=== PATIENT | male | born 1955 | race Caucasian/White ===

== ENCOUNTER 2017-08-27 12:50 | Observation (INO) | payer OTHER ==
[~2017-08-27] VITALS: Ht 175.3 cm; Wt 84.0 kg
[2017-08-27 13:31] VITALS: BP 124/66; PULSE 86; RESP 18; TEMP 97.5; O2SAT 99
[2017-08-27 13:57] VITALS: BP 104/64; PULSE 60; RESP 19; O2SAT 97
--- NOTE | 2017-08-27 13:59 | PD ---
HPI Chief Complaint: Chest Pain Time Seen by Provider: 13:44 Travel History International Travel<30 days: No Contact w/Intl Traveler<30days: No Traveled to known affect area: No History of Present Illness HPI 62-year-old male went to an urgent here and was sent here with note of chest pain and numbness to his left arm. He was given aspirin and 1 nitroglycerin prior to arrival. He denies any other concurrent complaints. He states multiple years ago he had a normal heart catheterization after an abnormal stress test. He states he has not had a stress test or any other testing for multiple years. Quality is pressure. Severity is currently resolved. He denies other modifying factors other than improvement with the nitroglycerin. The pain has been going on today. [facility] Past Medical History Medical History: Denies Significant Hx Past Surgical History Surgical History: No Previous Surgery Family History Family Myocardial Infarction: No Social History Tobacco Use: No Review of Systems Except as stated in HPI: all other systems reviewed are Neg Physical Exam Narrative GENERAL: 62-year-old male in no apparent distress SKIN: Focused skin assessment warm/dry. HEAD: Atraumatic. Normocephalic. EYES: No scleral icterus. No injection or drainage. ENT: No nasal bleeding or discharge. Mucous membranes pink and moist. NECK: Trachea midline. No JVD. CARDIOVASCULAR: Regular rate and rhythm. RESPIRATORY: No accessory muscle use. Clear to auscultation. Breath sounds equal bilaterally. GASTROINTESTINAL: Abdomen soft, non-tender, nondistended. MUSCULOSKELETAL: No obvious deformities. No clubbing. No cyanosis. NEUROLOGICAL: Awake and alert. No obvious cranial nerve deficits. Motor grossly within normal limits. Normal speech. Data Data Last Documented VS Vital Signs Date Time Temp Pulse Resp B/P (MAP) Pulse Ox O2 Delivery O2 Flow Rate FiO2 08/27/17 13:57 60 19 104/64 (77) 97 Room Air 08/27/17 13:31 97.5 Orders Orders Electrocardiogram (08/27/17 13:45) Ckmb (Isoenzyme) Profile (08/27/17 13:45) Complete Blood Count With Diff (08/27/17 13:45) Comprehensive Metabolic Panel (08/27/17 13:45) Magnesium (Mg) (08/27/17 13:45) Prothrombin Time / Inr (Pt) (08/27/17 13:45) Act Partial Throm Time (Ptt) (08/27/17 13:45) Troponin I (08/27/17 13:45) Chest, Single Ap (08/27/17 13:45) Ecg Monitoring (08/27/17 13:45) Bilateral Bp Monitoring (08/27/17 13:45) Iv Access Insert/Monitor (08/27/17 13:45) Oximetry (08/27/17 13:45) Admit Order (Ed Use Only) (08/27/17 15:29) Labs Laboratory Tests Test 08/27/17 13:55 White Blood Count 5.6 TH/MM3 Red Blood Count 5.00 MIL/MM3 Hemoglobin 15.8 GM/DL Hematocrit 44.8 % Mean Corpuscular Volume 89.7 FL Mean Corpuscular Hemoglobin 31.6 PG Mean Corpuscular Hemoglobin Concent 35.2 % Red Cell Distribution Width 13.3 % Platelet Count 174 TH/MM3 Mean Platelet Volume 8.7 FL Neutrophils (%) (Auto) 64.2 % Lymphocytes (%) (Auto) 27.5 % Monocytes (%) (Auto) 5.6 % Eosinophils (%) (Auto) 1.2 % Basophils (%) (Auto) 1.5 % Neutrophils # (Auto) 3.6 TH/MM3 Lymphocytes # (Auto) 1.5 TH/MM3 Monocytes # (Auto) 0.3 TH/MM3 Eosinophils # (Auto) 0.1 TH/MM3 Basophils # (Auto) 0.1 TH/MM3 CBC Comment DIFF FINAL Differential Comment Prothrombin Time 11.5 SEC Prothromb Time International Ratio 1.1 RATIO Activated Partial Thromboplast Time 28.3 SEC Blood Urea Nitrogen 9 MG/DL Creatinine 0.98 MG/DL Random Glucose 92 MG/DL Total Protein 6.9 GM/DL Albumin 3.9 GM/DL Calcium Level 8.6 MG/DL Magnesium Level 2.0 MG/DL Alkaline Phosphatase 76 U/L Aspartate Amino Transf (AST/SGOT) 21 U/L Alanine Aminotransferase (ALT/SGPT) 25 U/L Total Bilirubin 0.4 MG/DL Sodium Level 141 MEQ/L Potassium Level 3.8 MEQ/L Chloride Level 100 MEQ/L Carbon Dioxide Level 30.6 MEQ/L Anion Gap 10 MEQ/L Estimat Glomerular Filtration Rate 78 ML/MIN Total Creatine Kinase 82 U/L Troponin I LESS THAN 0.02 NG/ML MDM Medical Decision Making Medical Screen Exam Complete: Yes Emergency Medical Condition: Yes Medical Record Reviewed: Yes (Past history confirmed) Interpretation(s) CBC & BMP Diagram 08/27/17 13:55 Total Protein 6.9, Albumin 3.9, Calcium Level 8.6, Magnesium Level 2.0, Alkaline Phosphatase 76, Aspartate Amino Transf (AST/SGOT) 21, Alanine Aminotransferase (ALT/SGPT) 25, Total Bilirubin 0.4 Last 24 hours Impressions Chest X-Ray 08/27/17 1345 Signed Impressions: CONCLUSION: No acute intracranial abnormality. Differential Diagnosis MS, gastritis, musculoskeletal Narrative Course We will check blood work, x-ray and reevaluate. Already received aspirin and currently pain-free ed workup no acute, will place in [facility] observation, patient agrees to plan, no new concerns Diagnosis Primary Impression: Chest pain Qualified Codes: R07.9 - Chest pain, unspecified Admitting Information Admitting Physician Requests: Observation Margo Rivas MD August 27, 2017 13:59
--- NOTE | 2017-08-27 14:16 | RADRPT ---
EXAM DATE: 08/27/2017 2:10 PM EDT AGE/SEX: 62 years / Male INDICATIONS: Tightness in chest, tingling in left arm and shoulder. CLINICAL DATA: This is the patient's initial encounter. Patient reports that signs and symptoms have been present for 1 day and indicates a pain score of 0/10. MEDICAL/SURGICAL HISTORY: None. None. COMPARISON: No prior [place] exams available for comparison. FINDINGS: A single AP view of the chest demonstrates the lungs to be symmetrically aerated without evidence of mass, infiltrate or effusion. The cardiomediastinal contours are unremarkable. Osseous structures a re intact. CONCLUSION: No acute intracranial abnormality. Electronically signed by: Vishnu Vang MD 08/27/2017 2:15 PM EDT
[2017-08-27 14:29] LABS: AUTOMATED NEUTROPHIL # 3.6 TH/MM3 (1.8-7.7); BASOPHIL # 0.1 TH/MM3 (0-0.2); BASOPHIL % 1.5 % (0.0-2.0); EOSINOPHIL # 0.1 TH/MM3 (0-0.4); EOSINOPHIL % 1.2 % (0.0-4.0); HEMATOCRIT 44.8 % (39.0-51.0); HEMOGLOBIN 15.8 GM/DL (13.0-17.0); LYMPH % 27.5 % (9.0-44.0); LYMPHOCYTE # 1.5 TH/MM3 (1.0-4.8); MEAN CELL VOLUME 89.7 FL (80.0-100.0); MEAN CORPUSCULAR HEMOGLOBIN 31.6 PG (27.0-34.0); MEAN CORPUSCULAR HGB CONC 35.2 % (32.0-36.0); MEAN PLATELET VOLUME 8.7 FL (7.0-11.0); MONO % 5.6 % (0.0-8.0); MONOCYTE # 0.3 TH/MM3 (0-0.9); NEUT % 64.2 % (16.0-70.0); PLATELET COUNT 174 TH/MM3 (150-450); RED CELL DISTRIBUTION WIDTH 13.3 % (11.6-17.2); WHITE BLOOD COUNT 5.6 TH/MM3 (4.0-11.0)
[2017-08-27 14:39] LABS: INTERNATIONAL NORMALIZED RATIO 1.1 RATIO; PROTHROMBIN TIME - PATIENT 11.5 SEC (9.8-11.6)
[2017-08-27 15:08] LABS: ALBUMIN 3.9 GM/DL (3.4-5.0); ALT (GPT) 25 U/L (12-78); AST (GOT) 21 U/L (15-37); BICARBONATE 30.6 MEQ/L (21.0-32.0); BLOOD UREA NITROGEN 9 MG/DL (7-18); CALCIUM 8.6 MG/DL (8.5-10.1); CHLORIDE 100 MEQ/L (98-107); CREATININE 0.98 MG/DL (0.60-1.30); GLOMERULAR FILTRATION RATE 78 ML/MIN (>89); GLUCOSE,RANDOM 92 MG/DL (74-106); SODIUM (NA) 141 MEQ/L (136-145)
[2017-08-27 15:13] LABS: ALKALINE PHOSPHATASE 76 U/L (45-117); TOTAL BILIRUBIN ADULT 0.4 MG/DL (0.2-1.0); TOTAL PROTEIN 6.9 GM/DL (6.4-8.2); TROPONIN I LESS THAN 0.02 NG/ML (0.02-0.05)
[2017-08-27 16:35] VITALS: BP 105/63; PULSE 53; RESP 17; O2SAT 97
[2017-08-27 17:14] LABS: TROPONIN I LESS THAN 0.02 NG/ML (0.02-0.05)
--- NOTE | 2017-08-27 17:25 | HHI.HP ---
[facility] Primary Care Physician Kurt Jackson DO Chief Complaint Chest pain History of Present Illness This is a 62-year-old male that is legally blind that presents to ED after being evaluated at an urgent care center with complaint of tingling in left arm intermittently for the last 5 days. He was given sublingual nitroglycerin and told to come to ED. 5 days ago he also had a left-sided chest discomfort that lasted about an hour. Describes as a tightness. The discomfort never recurred. The tingling in the left arm seems last a couple hours at a time. Nothing in particular seems to bring on the discomfort. Denies shortness of breath, nausea, or diaphoresis. States he has had a cardiac evaluation in the past. States he had an abnormal stress test 10 years ago that led to a heart catheterization which she states is normal. Review of Systems General: Patient denies fevers, chills, and recent travel. HEENT: Patient denies headache, sore throat, difficulty swallowing. Cardiovascular: Has the chest discomfort as mentioned above. Denies sensation of heart beating rapidly or irregularly. No syncope. Denies diaphoresis. Respiratory: Denies shortness of breath or inspirational chest discomfort. Denies coughing wheezing or hemoptysis. GI: Patient denies nausea, vomiting, diarrhea, abdominal pain, bloody stools. Musculoskeletal: Patient denies joint pain or edema. Denies calf pain or edema. Neurovascular: Complained of tingling down his left arm. Patient denies numbness, weakness in extremities. Denies headache. Endocrine: Denies polyuria and polydipsia. Hematologic: Denies easy bruising. Skin: Denies rash or itching. Past Family Social History Allergies: Coded Allergies: No Known Allergies (Unverified , 08/27/17) Past Medical History Patient states he is legally blind. Denies hypertension, hyperlipidemia, diabetes, and known CAD. Family History States his mother had an WA in her late 70s. Social History Lifetime non-smoker. Denies alcohol or illicit drug use. Physical Exam Vital Signs Vital Signs Date Time Temp Pulse Resp B/P (MAP) Pulse Ox O2 Delivery O2 Flow Rate FiO2 08/27/17 17:12 (77) 08/27/17 16:35 53 17 105/63 (77) 97 Room Air 08/27/17 13:57 60 19 104/64 (77) 97 Room Air 08/27/17 13:31 97.5 86 18 124/66 (85) 99 Physical Exam GENERAL: This is a well-nourished, well-developed patient, in no apparent distress. Patient speaks in clear complete sentences. Patient is pleasant. HEENT: Head is atraumatic and normocephalic. Neck is supple without lymphadenopathy and trachea is midline. No JVD or carotid bruits. CARDIOVASCULAR: Regular rate and rhythm without murmurs, gallops, or rubs. RESPIRATORY: Clear to auscultation. Breath sounds equal bilaterally. No wheezes , rales, or rhonchi. Chest wall is nontender. No use of accessory muscles. GASTROINTESTINAL: Abdomen is nontender, nondistended. Abdomen soft. No obvious pulsatile mass or bruit. No CVA tenderness. Strong femoral pulses bilaterally. Normal bowel sounds in all quadrants. MUSCULOSKELETAL: Patient is moving upper and lower extremities freely. No calf tenderness or edema, no Homans sign. Strong pulses in upper and lower extremities. NEUROLOGICAL: Patient is alert and oriented. Cranial nerves 2-12 are grossly intact. No focal deficits and speech is clear. SKIN: No rash and turgor is normal. Laboratory Laboratory Tests Test 08/27/17 13:55 08/27/17 16:34 White Blood Count 5.6 Red Blood Count 5.00 Hemoglobin 15.8 Hematocrit 44.8 Mean Corpuscular Volume 89.7 Mean Corpuscular Hemoglobin 31.6 Mean Corpuscular Hemoglobin Concent 35.2 Red Cell Distribution Width 13.3 Platelet Count 174 Mean Platelet Volume 8.7 Neutrophils (%) (Auto) 64.2 Lymphocytes (%) (Auto) 27.5 Monocytes (%) (Auto) 5.6 Eosinophils (%) (Auto) 1.2 Basophils (%) (Auto) 1.5 Neutrophils # (Auto) 3.6 Lymphocytes # (Auto) 1.5 Monocytes # (Auto) 0.3 Eosinophils # (Auto) 0.1 Basophils # (Auto) 0.1 CBC Comment DIFF FINAL Differential Comment Prothrombin Time 11.5 Prothromb Time International Ratio 1.1 Activated Partial Thromboplast Time 28.3 Blood Urea Nitrogen 9 Creatinine 0.98 Random Glucose 92 Total Protein 6.9 Albumin 3.9 Calcium Level 8.6 Magnesium Level 2.0 Alkaline Phosphatase 76 Aspartate Amino Transf (AST/SGOT) 21 Alanine Aminotransferase (ALT/SGPT) 25 Total Bilirubin 0.4 Sodium Level 141 Potassium Level 3.8 Chloride Level 100 Carbon Dioxide Level 30.6 Anion Gap 10 Estimat Glomerular Filtration Rate 78 Total Creatine Kinase 82 Troponin I LESS THAN 0.02 Result Diagram: 08/27/17 1355 08/27/17 1355 Imaging Last 48 hours Impressions Chest X-Ray 08/27/17 1345 Signed Impressions: CONCLUSION: No acute intracranial abnormality. Course Initial EKG is sinus bradycardia without significant ST segment depressions or elevations. Caprini VTE Risk Assessment Caprini VTE Risk Assessment: Mod/High Risk (score >= 2) Caprini Risk Assessment Model Point Value = 1 Point Value = 2 Point Value = 3 Point Value = 5 Age 41-60 Minor surgery BMI > 25 kg/m2 Swollen legs Varicose veins or History of unexplained or recurrent spontaneous Oral contraceptives or hormone replacement Sepsis (< 1 month) Serious lung disease, including pneumonia (< 1 month) Abnormal pulmonary function Acute myocardial infarction Congestive heart failure (< 1 month) History of inflammatory bowel disease Medical patient at bed rest Age 61-74 Arthroscopic surgery Major open surgery (> 45 min) Laparoscopic surgery (> 45 min) Malignancy Confined to bed (> 72 hours) Immobilizing plaster cast Central venous access Age >= 75 History of VTE Family history of VTE Factor V Leiden Prothrombin [id number] Lupus anticoagulant Anticardiolipin antibodies Elevated serum homocysteine Heparin-induced thrombocytopenia Other congenital or acquired thrombophilia Stroke (< 1 month) Elective arthroplasty Hip, pelvis, or leg fracture Acute spinal cord injury (< 1 month) Prophylaxis Regimen Total Risk Factor Score Risk Level Prophylaxis Regimen 0-1 Low Early ambulation 2 Moderate Order ONE of the following: *Sequential Compression Device (SCD) *Heparin 5000 units SQ BID 3-4 Higher Order ONE of the following medications: *Heparin 5000 units SQ TID *Enoxaparin/Lovenox 40 mg SQ daily (WT < 150 kg, CrCl > 30 mL/min) *Enoxaparin/Lovenox 30 mg SQ daily (WT < 150 kg, CrCl > 10-29 mL/min) *Enoxaparin/Lovenox 30 mg SQ BID (WT < 150 kg, CrCl > 30 mL/min) AND/OR *Sequential Compression Device (SCD) 5 or more Highest Order ONE of the following medications: *Heparin 5000 units SQ TID (Preferred with Epidurals) *Enoxaparin/Lovenox 40 mg SQ daily (WT < 150 kg, CrCl > 30 mL/min) *Enoxaparin/Lovenox 30 mg SQ daily (WT < 150 kg, CrCl > 10-29 mL/min) *Enoxaparin/Lovenox 30 mg SQ BID (WT < 150 kg, CrCl > 30 mL/min) AND *Sequential Compression Device (SCD) Assessment and Plan Assessment and Plan * Atypical chest pain: Patient complained of an episode of chest discomfort 5 days ago. He has continued to have intermittent left arm tingling. Patient will continue to have serial cardiac enzymes and EKGs for ruling out purposes. He was seen by Dr. Blanco of cardiology in the chest pain center. He will undergo a Lexiscan in the morning. Patient will be discharged home if stress test is nonischemic with instructions to follow-up with PCP. Return to ED for interval issues. Patient is stable at this time. He is agreeable to this plan. Martinez Nava August 27, 2017 17:25
[2017-08-27 17:28] VITALS: BP 109/64; PULSE 54; RESP 16; TEMP 97.5; O2SAT 96
[2017-08-27] MEDS ORDERED: ACETAMINOPHEN 500 MG CPLT PO PRN (17:30)
[2017-08-27] MEDS ORDERED: ONDANSETRON ODT 4 MG TAB PO PRN (17:30)
[2017-08-27] MEDS ORDERED: ACETAMINOPHEN/HYDROcodone 325 MG/7.5 MG TAB PO PRN (17:30)
[2017-08-27 20:18] VITALS: BP 113/57; PULSE 64; RESP 16; TEMP 97.7; O2SAT 96
[2017-08-27 21:06] LABS: TROPONIN I LESS THAN 0.02 NG/ML (0.02-0.05)
[2017-08-27 23:53] LABS: TROPONIN I LESS THAN 0.02 NG/ML (0.02-0.05)
[2017-08-28 00:03] VITALS: BP 108/69; PULSE 54; RESP 16; TEMP 97.5; O2SAT 98
[2017-08-28 03:39] VITALS: BP 112/68; PULSE 89; RESP 16; TEMP 97.6; O2SAT 96
--- NOTE | 2017-08-28 07:16 | EKG ---
Date Performed: 08/27/2017 Time Performed: 20:22:48 PTAGE: 62 years EKG: Sinus rhythm NORMAL ECG Since PREVIOUS TRACING , no significant change noted PREVIOUS TRACIN08/27/2017 16.35 DOCTOR: Yaritza Blanco Interpretating Date/Time 08/30/2017 08:15:30
--- NOTE | 2017-08-28 07:17 | EKG ---
Date Performed: 08/27/2017 Time Performed: 16:35:16 PTAGE: 62 years EKG: SINUS BRADYCARDIA BORDERLINE ECG Since PREVIOUS TRACING , no significant change noted PREVIOUS TRACIN08/27/2017 13.46 DOCTOR: Yaritza Blanco Interpretating Date/Time 08/30/2017 08:15:21
--- NOTE | 2017-08-28 07:18 | EKG ---
Date Performed: 08/27/2017 Time Performed: 13:46:28 PTAGE: 62 years EKG: SINUS BRADYCARDIA BORDERLINE ECG No prior for comparison DOCTOR: Yaritza Blanco Interpretating Date/Time 08/30/2017 08:15:13
[2017-08-28 07:28] VITALS: BP 122/70; PULSE 61; RESP 18; TEMP 98.7; O2SAT 96
[2017-08-28 08:00] VITALS: PULSE 59
[2017-08-28] MEDS ORDERED: ASPIRIN 325 MG TAB PO SCH (09:00)
[2017-08-28] MEDS ORDERED: REGADENOSON INJ 0.4 MG/5 ML SYR ONE (09:46)
--- NOTE | 2017-08-28 11:11 | RADRPT ---
EXAM DATE: 08/28/2017 10:49 AM EDT AGE/SEX: 62 years / Male INDICATIONS:Angina. . Chest pain radiating to left arm. CLINICAL DATA: This is the patient's initial encounter. Patient reports that signs and symptoms have been present for 1 day and indicates a pain score of 3/10. MEDICAL/SURGICAL HISTORY: Hypertension. . Extra toe removed on right foot. COMPARISON: No prior [facility] exams available for comparison. No external comparison. DOSE: 26.3 mCi Tc 99m Myoview at stress 8.6 mCi [id number] at rest 0.4 mg Lexiscan STRESS SYMPTOMS: Chest tightness and stomach pressure. EJECTION FRACTION: 59 % TECHNIQUE: The patient underwent pharmacologic stress with infusion of prescribed dose. Continuous ECG tracing was monitored during stress. Gated SPECT imaging was performed after stress and conventi onal SPECT imaging was performed at rest. The examination was performed on a SPECT/CT scanner, both attenuation and non-corrected datasets were reviewed. FINDINGS: Distribution: The maximum perfused segment at stress is in the anterior wall. Perfusion Study: The pattern of perfusion at stress is within normal limits. As a summed stress s core of 3. Gated Study: There are intact wall motion and wall thickening without hypokinetic or dyskinetic segm ents. The ejection fraction is calculated at 59%. RISK CATEGORY: Low (<1% Annual Motality Rate) CONCLUSION: 1. No fixed or reversible wall defect to suggest ischemia or infarction. 2. Normal wall motion and calculated ejection fraction Electronically signed by: Isaias Garland MD 08/28/2017 11:09 AM EDT
[2017-08-28 11:24] VITALS: BP 116/69; PULSE 61; RESP 18; TEMP 98; O2SAT 96
--- NOTE | 2017-08-28 11:24 | HHI.DCPOC ---
Discharge Care Plan Diagnosis: (1) Chest pain Goals to Promote Your Health * To prevent worsening of your condition and complications * To maintain your health at the optimal level Directions to Meet Your Goals Take your medications as prescribed Follow your dietary instruction Follow activity as directed Keep your appointments as scheduled Take your immunizations and boosters as scheduled If your symptoms worsen call your PCP, if no PCP go to Urgent Care Center or Emergency Room Smoking is Dangerous to Your Health. Avoid second hand smoke Call the 24-hour hour crisis hotline for domestic abuse at Martinez Nava August 28, 2017 11:24
--- NOTE | 2017-08-28 17:24 | TR ---
Date Performed: 08/28/2017 Time Performed: 09:44:12 DOCTOR: Yaritza Blanco DRUG LIST: CLINICAL HISTORY: REASON FOR TEST: CHEST PAIN REASON FOR ENDING: OBSERVATION: CONCLUSION: Lexiscan stress test was performed under standard four minute protocol. Radionuclid e was injected one minute prior to ending the test. No electrocardiographic abormalities were present to suggest ischemia. Nuclear imaging and interpretation are pending. COMMENTS: no ischemia
== END 2017-08-28 15:31 | disposition home or self-care (01) ==
LOC: NEPE 12:50 → NEDA 15:31 → NEPFCDU 17:14
PROVIDERS: ADMIT Internal Medicine Interventional Cardiology; ATTEND Internal Medicine Interventional Cardiology
DX: R07.89 Other chest pain (principal); R20.0 Anesthesia of skin; R20.2 Paresthesia of skin; H54.8 Legal blindness, as defined in USA; Z82.49 Family history of ischemic heart disease and other diseases of the circulatory system; R00.1 Bradycardia, unspecified; I10 Essential (primary) hypertension; R94.31 Abnormal electrocardiogram [ECG] [EKG]
CPT/HCPCS: 71045; 78452; 80053; 82550; 83735; 84484; 85025; 85610; 85730; 93005; 93017; 99285; A9502; G0378; J2785